=== PATIENT | female | born 1965 ===

== ENCOUNTER 2016-07-12 11:28 | Day surgery (SDC) | payer MEDICAID ==
[2016-07-12 12:14] VITALS: BMI 36.6
[2016-07-12] MEDS ORDERED: methylPREDNISolone Depo 80 mg/ml Inj ONE (13:29)
[2016-07-12] MEDS ORDERED: Lidocaine 1% Inj (20ml) ONE (13:30)
[2016-07-12] MEDS ORDERED: Bupivacaine HCl 0.25% PF (10 ml) Inj ONE (13:30)
[2016-07-12] MEDS ORDERED: Iohexol 300 10 ML ONE (13:30)
[2016-07-12] MEDS ORDERED: Propofol 10 mg/ml Inj (20 ML) ONE (14:11)
[2016-07-12] MEDS ORDERED: Lactated Ringer's 1,000 ML IV ONE (14:12)
[2016-07-12] MEDS ORDERED: methylPREDNISolone Depo 80 mg/ml Inj IM ONE (14:17)
[2016-07-12] MEDS ORDERED: Lidocaine 1% Inj (20ml) IJ ONE (14:18)
[2016-07-12] MEDS ORDERED: Bupivacaine HCl 0.25% PF (10 ml) Inj IJ ONE (14:18)
[2016-07-12] MEDS ORDERED: HYDROmorphone 0.5 mg/0.5 ml ISec IVP PRN (14:28)
[2016-07-12] MEDS ORDERED: Lactated Ringer's 1,000 ML IV SCH (14:30)
[2016-07-12 15:30] VITALS: RESP 18
--- NOTE | 2016-07-12 16:29 | RAD ---
PROCEDURE: Epidural Injection HISTORY: PAIN MANAGEMENT TECHNIQUE: Fluoroscopic guidance was provided for epidural injection for pain management purposes. FINDINGS: IMPRESSION: Fluoroscopic guidance provided for epidural injection. Please refer procedure.
[2016-07-12 16:33] VITALS: BP 105/68; PULSE 89; TEMP 98; O2SAT 97
--- NOTE | 2016-07-12 17:56 | OP ---
PROCEDURE DATE: 07/12/2016 ANESTHESIOLOGIST: Dr. Hagen. PREOPERATIVE DIAGNOSIS: Sacroiliitis. POSTOPERATIVE DIAGNOSIS: Sacroiliitis. PROCEDURE: Bilateral sacroiliac joint injection under fluoroscopic guidance. EXPECTED BLOOD LOSS: None. COMPLICATIONS: None. TECHNIQUE: After informed consent was obtained, the patient was brought to the OR and placed on the table in prone position. All pressure points were padded, and sedation was administered by anesthesia. The lumbosacral spine was prepped with iodine x 3 and draped in normal sterile fashion. X-ray in the AP view was used to identify the sacroiliac joints, while 2 mL of 1% lidocaine was used to create skin wheals. Under AP fluoroscopic view, a 22 gauge 3-1/2 inch spinal needle was advanced to contact the inferior medial edge of the right sacroiliac joint. There was no paresthesia during placement of the needle. After negative aspiration for heme or CSF, 2 mL of 0.25% preservative-free Marcaine and Depo-Medrol was easily instilled at this point. This procedure was repeated for the middle and superior borders of the right sacroiliac joint and the borders of the left sacroiliac joint. There was no paresthesia experienced by the patient during the procedure. The patient was brought to the stage II recovery room with stable vital signs and bilateral lower extremity motor and sensory intact. Lauren Lee MD cc: [id number] TT: 07/12/2016 17:56:13 isai [id number]
== END 2016-07-12 16:35 | disposition home or self-care (01) ==
LOC: H.OPSURG 11:28
PROVIDERS: ATTEND Anesthesiology Pain Medicine
DX: M46.1 Sacroiliitis, not elsewhere classified (principal); J45.909 Unspecified asthma, uncomplicated; E03.9 Hypothyroidism, unspecified; E78.5 Hyperlipidemia, unspecified